=== PATIENT | male | born 1990 | race Caucasian/White ===

== ENCOUNTER 2020-03-21 09:09 | Emergency (ER) | payer BC ==
--- NOTE | 2020-03-21 10:07 | EDM.PDOC ---
ED HPI GENERAL MEDICAL PROBLEM - General Chief Complaint: Skin Complaint Stated Complaint: POISON MONTY Time Seen by Provider: 03/21/20 10:01 Source of Information: Reports: Patient History Limitations: Reports: No Limitations - History of Present Illness INITIAL COMMENTS - FREE TEXT/NARRATIVE: Pt got into some poison monty over the past weekend. Has had several times over the years. Has been using OTC calamine, would like Rx for prednisone which helps recovery. No other reason for ER visit. Denies fevers. Duration: Constant Location: Reports: Upper Extremity, Left, Upper Extremity, Right, Lower Extremity, Left, Lower Extremity, Right Quality: Reports: Same as Previous Episode Severity: Mild Improves with: Reports: Cold Therapy, Medication, Rest Worsens with: Reports: None Associated Symptoms: Reports: No Other Symptoms. Denies: Fever/Chills Right Leg Pain Score (Numeric/FACES): 3 - Related Data Allergies Allergy/AdvReac Type Severity Reaction Status Date / Time Penicillins Allergy Cannot Verified 03/21/20 10:07 Remember Home Meds: Home Meds predniSONE [Prednisone] 20 mg PO DAILY 5 Days #5 tablet 03/21/20 [Rx] ED ROS GENERAL - Review of Systems Review Of Systems: See Below Constitutional: Reports: No Symptoms. Denies: Fever, Malaise HEENT: Reports: No Symptoms Respiratory: Reports: No Symptoms. Denies: Shortness of Breath, Cough, Sputum Cardiovascular: Reports: No Symptoms. Denies: Chest Pain Endocrine: Reports: No Symptoms GI/Abdominal: Reports: No Symptoms. Denies: Abdominal Pain : Reports: No Symptoms Musculoskeletal: Reports: No Symptoms Skin: Reports: Pruritis, Rash Neurological: Reports: No Symptoms ED EXAM, SKIN/RASH Exam: See Below Exam Limited By: No Limitations General Appearance: Alert, WD/WN, No Apparent Distress Head: Atraumatic, Normocephalic Neck: Normal Inspection, Supple, Non-Tender, Full Range of Motion Respiratory/Chest: No Respiratory Distress, Lungs Clear Cardiovascular: Normal Peripheral Pulses, Regular Rate, Rhythm Extremities: Normal Inspection, Normal Range of Motion Neurological: Alert, Oriented, CN II-XII Intact, Normal Cognition Psychiatric: Normal Affect Skin: Dry, Normal Color, Excoriations, Rash. No: Ecchymosis, Erythema Location, Skin: Upper Extremity, Right, Upper Extremity, Left, Lower Extremity, Right, Lower Extremity, Left Characteristics: Vesicular. No: Bullous, Urticarial, Petechial, Necrotic Associated features: Warmth Course - Vital Signs Last Recorded V/S: Last Vital Signs Temp 98.2 F 03/21/20 09:56 Pulse 98 03/21/20 09:56 Resp 18 03/21/20 09:56 BP 119/72 03/21/20 09:56 Pulse Ox 98 03/21/20 09:56 - Re-Assessments/Exams Free Text/Narrative Re-Assessment/Exam: 03/21/20 10:07 Poison Monty contact. Rx for prednisone 20 mg qd for 5 days Departure - Departure Time of Disposition: 10:09 Disposition: Home, Self-Care 01 Condition: Good Clinical Impression: Poison monty dermatitis - Discharge Information *PRESCRIPTION DRUG MONITORING PROGRAM REVIEWED*: Not Applicable *COPY OF PRESCRIPTION DRUG MONITORING REPORT IN PATIENT TOBI: Not Applicable Instructions: Poison Monty Dermatitis Referrals: PCP,None [Primary Care Provider] - Sepsis Event Note (ED) - Evaluation Sepsis Screening Result: No Definite Risk - Focused Exam Vital Signs: Vital Signs Temp Pulse Resp BP Pulse Ox 03/21/20 09:56 98.2 F 98 18 119/72 98
== END 2020-03-21 10:16 | disposition home or self-care (01) ==
LOC: LB.ED 09:09
DX: L23.7 Allergic contact dermatitis due to plants, except food (principal); Z88.0 Allergy status to penicillin
CPT/HCPCS: 99282